=== PATIENT | female | born 1960 | race Hispanic/Latino ===

== ENCOUNTER 2019-10-18 09:31 | Outpatient (AMBR) | payer MEDICARE, MEDICAID, SELFPAY ==
--- NOTE | 2019-09-25 13:13 | PT.ODAYNRPT ---
PT Outpatient Daily Note Date of Service: 09/25/19 OP Daily Note Visit Reasons: left knee post op Outpatient Physical Therapy Treatment Date: 09/25/19 Subjective: Pt mention that her knee is doing well. Pt stop using her 4WW as much Objective: Please see flow chart for list of ther ex performed Assessment: tolerate exercises with minimal pain; able to perform all exercises without limitation. frequent rest break due to patient being exhausted Plan: Continue with PT Length of Time (minutes) of Treatment: 30 Minutes Office Procedures PT Procedures PT Date of Service: 09/25/19 Therapeutic Exercise 30 minutes: Yes
--- NOTE | 2019-09-27 11:04 | PT.ODAYNRPT ---
PT Outpatient Daily Note Date of Service: 09/27/19 OP Daily Note Visit Reasons: left knee post op Outpatient Physical Therapy Treatment Date: 09/27/19 Subjective: Pt mention that her knee is better. Pt denies of soreness Objective: Please see flow chart for list of ther ex performed Assessment: tolerate exercises with minimal pain Plan: Continue with PT Length of Time (minutes) of Treatment: 30 Minutes Office Procedures PT Procedures PT Date of Service: 09/25/19 Therapeutic Exercise 30 minutes: Yes PT Procedures PT Date of Service: 09/27/19 Therapeutic Exercise 30 minutes: Yes
--- NOTE | 2019-10-03 11:59 | PT.ODAYNRPT ---
PT Outpatient Daily Note Date of Service: 10/03/19 OP Daily Note Visit Reasons: left knee post op Outpatient Physical Therapy Treatment Date: 10/03/19 Subjective: Pt's knee sore from excessive walking from yesterday. Today she notice more swelling in the knee in the morning. Objective: Please see flow chart for list of ther ex performed Assessment: tolerate exercises; slight difficulty with sitting knee flexion stretch due to pain and rectus femoris tigthness Plan: Continue with PT Length of Time (minutes) of Treatment: 30 Minutes Office Procedures PT Procedures PT Date of Service: 10/03/19 Therapeutic Exercise 30 minutes: Yes PT Procedures PT Date of Service: 09/25/19 Therapeutic Exercise 30 minutes: Yes PT Procedures PT Date of Service: 09/27/19 Therapeutic Exercise 30 minutes: Yes
--- NOTE | 2019-10-05 09:21 | PT.ODAYNRPT ---
PT Outpatient Daily Note Date of Service: 10/05/19 OP Daily Note Visit Reasons: left knee post op Outpatient Physical Therapy Treatment Date: 10/05/19 Subjective: Pt's knee is sore from walking a lot the other day. Pt notice a little more swelling this morning. Objective: Please see flow chart for list of ther ex performed Assessment: notice more pain with all exercises; unable to perform lateral step exercise due to knee pain. Pt was pace slower with no resistance added today. Plan: Continue with PT Length of Time (minutes) of Treatment: 30 Minutes Office Procedures PT Procedures PT Date of Service: 10/03/19 Therapeutic Exercise 30 minutes: Yes PT Procedures PT Date of Service: 09/25/19 Therapeutic Exercise 30 minutes: Yes PT Procedures PT Date of Service: 09/27/19 Therapeutic Exercise 30 minutes: Yes PT Procedures PT Date of Service: 10/05/19 Therapeutic Exercise 30 minutes: Yes
--- NOTE | 2019-10-10 12:20 | PT.ODAYNRPT ---
PT Outpatient Daily Note Date of Service: 10/10/19 OP Daily Note Visit Reasons: left knee post op Outpatient Physical Therapy Treatment Date: 10/10/19 Subjective: Pt mention that her knee is better. Pt stop using her cane over the weekend and feels safe without it. Objective: Please see flow chart for list of ther ex performed Assessment: tolerate exercises with minimal pain; added mini squat with slight difficulty due to knee pain Plan: Continue with PT Length of Time (minutes) of Treatment: 30 Minutes Office Procedures PT Procedures PT Date of Service: 10/03/19 Therapeutic Exercise 30 minutes: Yes PT Procedures PT Date of Service: 09/25/19 Therapeutic Exercise 30 minutes: Yes PT Procedures PT Date of Service: 09/27/19 Therapeutic Exercise 30 minutes: Yes PT Procedures PT Date of Service: 10/05/19 Therapeutic Exercise 30 minutes: Yes PT Procedures PT Date of Service: 10/10/19 Therapeutic Exercise 30 minutes: Yes
--- NOTE | 2019-10-16 12:48 | PT.ODAYNRPT ---
PT Outpatient Daily Note Date of Service: 10/16/19 OP Daily Note Visit Reasons: left knee post op Outpatient Physical Therapy Treatment Date: 10/16/19 Subjective: Pt mention that her knee is swollen today and has been doing a lot more at home. Objective: Please see flow chart for list of ther ex performed Assessment: tolerate exercises with minimal pain; frequent rest breaks due to fatigue Plan: Continue with PT Length of Time (minutes) of Treatment: 30 Minutes Office Procedures PT Procedures PT Date of Service: 10/03/19 Therapeutic Exercise 30 minutes: Yes PT Procedures PT Date of Service: 10/16/19 Therapeutic Exercise 30 minutes: Yes PT Procedures PT Date of Service: 09/25/19 Therapeutic Exercise 30 minutes: Yes PT Procedures PT Date of Service: 09/27/19 Therapeutic Exercise 30 minutes: Yes PT Procedures PT Date of Service: 10/05/19 Therapeutic Exercise 30 minutes: Yes PT Procedures PT Date of Service: 10/10/19 Therapeutic Exercise 30 minutes: Yes
--- NOTE | 2019-10-18 10:09 | PTNOTE_ITS ---
PT Outpatient Daily Note Date of Service: 10/18/2019 OP Daily Note Visit Reasons: left knee post op Outpatient Physical Therapy Treatment Date: 10/18/19 Subjective: pt states she doing ok upon visit. pt states her R knee will need TKR as well. Objective: see flow sheet. Assessment: pt needs seated rest breaks in between ther ex due to fatigue and SOB. she needs more practice with her mini squats due too poor form. she tends to have knees over toes. after cued pt to pretend she is going to sit in chair that's what helped her correct her form. Plan: continue POC per PT. Length of Time (minutes) of Treatment: 30 Minutes LEARNING DISABLED TEACHER Service Modifier Method I: Divide the number of min of care provided by the LEARNING DISABLED TEACHER/ASSISTANT OPERATIONS MANAGER by the total min of care provided then multiply by 100. If greater than 11 percent modifier is required. Method II: Divide the total time of care provided to patient by 10 (round to the nearest whole number) and add 1 min. to set the minimum time requirement. If treatment total was 60 min., then 10% of 6 min Did LEARNING DISABLED TEACHER provide more than 10% of the care?: Yes PT CQ modifier applied: CQ Modifier applied Office Procedures PT Procedures PT Date of Service: 10/03/19 Therapeutic Exercise 30 minutes: Yes PT Procedures PT Date of Service: 10/16/19 Therapeutic Exercise 30 minutes: Yes PT Procedures PT Date of Service: 09/25/19 Therapeutic Exercise 30 minutes: Yes PT Procedures PT Date of Service: 09/27/19 Therapeutic Exercise 30 minutes: Yes PT Procedures PT Date of Service: 10/05/19 Therapeutic Exercise 30 minutes: Yes PT Procedures PT Date of Service: 10/10/19 Therapeutic Exercise 30 minutes: Yes PT Procedures PT Date of Service: 10/18/19 Therapeutic Exercise 30 minutes: Yes
== END 2019-10-23 23:59 | disposition home or self-care (01) ==
PROVIDERS: PCP Physician Assistant Medical; Referring Provider Physician Assistant Medical; Visit Provider Orthopaedic Surgery
DX: Z47.1 Aftercare following joint replacement surgery (principal); Z96.652 Presence of left artificial knee joint; M25.561 Pain in right knee; R26.2 Difficulty in walking, not elsewhere classified
CPT/HCPCS: 97110

== ENCOUNTER 2019-11-02 08:52 | Outpatient (AMBR) | payer MEDICARE, MEDICAID, SELFPAY ==
--- NOTE | 2019-10-26 15:46 | PT.ODS1RPT ---
PT OP Progress/Discharge Note Date of Service: 10/26/19 Progress Note/DC Note Progress Note/Discharge Note: Progress Note Patient Information Visit Reasons: POST OP KNEE Medical Diagnosis: Z47.1; Z96.652 Treatment Dx #1: Left Knee Mobility Deficits Treatment Dx #2: Left Knee Weakness Service Continue Service or Discharge: Continue Service Certification Date Certification Dates: 10/26/19 to 01/25/20 Status Subjective: Pt's knee is better. Pt has been able to walk with and without her cane. 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 Pt's average knee pain is 5/10 based upon the activities and how long is the activities. Pt lives alone and started to cook and clean in the past week. Objective: Left Knee AROM: -8 deg to 120 deg Left Knee MMTs Quads: 3+/5 Hs: 3+/5 Left Hip MMTs Glute Med: 3+/5 Glute Max: 3+/5 SLS: 5 sec Assessment: Pt continues to improve with ROM and strength allowing her to ambulate and perform light ADLs with less limitation. Pt still has difficulty with squat, stairs, and prolonged activities due to weakness and decrease endurance. Pt has not met set goals yet and will continue to benefit from physical therapy, thank you for your referrals. Plan: Continue with PT/POC Office Procedures PT Procedures PT Date of Service: 10/26/19 Therapeutic Exercise 30 minutes: Yes
--- NOTE | 2019-10-31 10:22 | PT.ODAYNRPT ---
PT Outpatient Daily Note Date of Service: 10/31/19 OP Daily Note Visit Reasons: POST OP KNEE Outpatient Physical Therapy Treatment Date: 10/31/19 Subjective: Pt mention that her knee is good. Pt stood and walk a lot this weekend for birthdays Objective: Please see flow chart for list of ther ex performed Assessment: tolerate exercises with minimal pain; continues to progress with strength and balance exercises Plan: Continue with PT Length of Time (minutes) of Treatment: 30 Minutes Office Procedures PT Procedures PT Date of Service: 10/26/19 Therapeutic Exercise 30 minutes: Yes PT Procedures PT Date of Service: 10/31/19 Therapeutic Exercise 30 minutes: Yes
--- NOTE | 2019-11-02 09:31 | PT.ODS1RPT ---
PT OP Progress/Discharge Note Date of Service: 11/02/19 Progress Note/DC Note Progress Note/Discharge Note: DC Note Patient Information Visit Reasons: POST OP KNEE Medical Diagnosis: Z47.1; Z96.652 Treatment Dx #1: Left Knee Mobility Deficits Treatment Dx #2: Left Knee Weakness Service Continue Service or Discharge: Discharge Discharge Date: 11/02/19 Status Subjective: Pt mention that her knee feels better. Pt's been able to walk without her cane. Pt is walking and standing longer now allowing her to start to cook and clean. Pt mention that driving is also coming along where's she's able to use both legs. At this time Pt feels comfortable being release from physical therapy with exercises to continue at home. Objective: Left Knee AROM: -7 deg to 120 deg Left Knee MMTs Quads: 4-/5 Hs: 4-/5 Left Hip MMTs Glute Med: 3+/5 GLute Max: 3+/5 SLS: 10 sec Assessment: Pt demonstrate functional knee mobility and strength allowing her to resume ADLs, ambulate, and perform chores, and cook with minimal limitation. Pt has met all set goals in therapy and will no longer benefit from physical therapy. Pt was instructed on HEP last session and educated to continue exercises to maintain overall mobility. Pt performed all exercises safely, thank you for your referrals. Plan: D/C home with HEP and follow up with [facility] Office Procedures PT Procedures PT Date of Service: 10/26/19 Therapeutic Exercise 30 minutes: Yes PT Procedures PT Date of Service: 10/31/19 Therapeutic Exercise 30 minutes: Yes PT Procedures PT Date of Service: 11/02/19 Therapeutic Exercise 30 minutes: Yes Self Care/Home Mgmt 15 minutes: Yes
== END 2019-11-22 23:59 | disposition home or self-care (01) ==
PROVIDERS: PCP Orthopaedic Surgery; Referring Provider Orthopaedic Surgery; Visit Provider Orthopaedic Surgery
DX: Z47.1 Aftercare following joint replacement surgery (principal); Z96.652 Presence of left artificial knee joint; M25.561 Pain in right knee; R26.2 Difficulty in walking, not elsewhere classified
CPT/HCPCS: 97110; 97535

== ENCOUNTER 2020-03-20 08:00 | Outpatient (AMBR) | payer MEDICARE, MEDICAID, SELFPAY ==
--- NOTE | 2020-03-06 09:21 | PT.OIERPT ---
PT OP Initial Eval Patient Information Visit Reasons: left knee pain Medical Diagnosis: M22.42 Treatment Dx #1: Left Knee Pain Treatment Dx #2: Left Knee Weakness Start of Care: 03/06/20 Date of Onset: 08/07/19 Initial Assessment Subjective Pt is a 59 y/o female s/p left knee replacement 08/07/19 which was doing great until December where she started to notice more knee pain (5/10). Pt stated that her surgeon mention her knee cap is shifted. Pt's recent xray showed satisfactory aligned knee implants. Pt has limitation with stairs, prolonged walking, squatting, kneeling, lifting, chores, cooking, getting in/out of bed, and performing recreational activities. Objective Left Knee AROM: -5 deg to 118 deg Left Knee MMTs Quads: 3+/5 Hs: 3/5 Left Hip MMTs Glute Med: 3/5 Glute Max: 3/5 SLS: 5 sec Assessment Pt demonstrate left knee pain and weakness leading to decline function. Pt will benefit from physical therapy to increase strength, stability, and work on task modification Short Term and Lunchroom Supervisor Goals 1) Increase left knee AROM to 120 knee flexion in 6 wks to be able to perform squatting activities 2) Increase left knee MMTs grossly to 4-/5 in 6 wks to be able to perform stairs and steps 3) Increase left hip hip MMTs grossly to 4-/5 in 6 wks to be able to perform ambulation more than 1 hr 4) Decrease knee pain to 2/10 in 6 wks to be able to get in/out of bed with less limitation 5) Increase SLS to 10 sec in 6 wks to be able to perform self care activities 6) Indep with HEP Treatment Plan 1) Manual Therapy 2) Therapeutic Activities 3) Therapeutic Exercises 4) Modalities (ice, heat) 5) Balance Training 6) Gait Training Frequency and Duration 2 x wk for 6 wks Certification Dates: 03/06/20 to 06/04/20 Office Procedures PT Procedures PT Date of Service: 03/06/20 OP PT Eval Mod Complex 30 minutes: Yes
--- NOTE | 2020-03-08 11:07 | PT.ODAYNRPT ---
PT Outpatient Daily Note Date of Service: 03/08/20 OP Daily Note Visit Reasons: left knee pain Outpatient Physical Therapy Treatment Date: 03/08/20 Subjective: Pt's knee is about the same Pt still has pain around the knee cap Objective: Please see flow chart for list of ther ex performed Assessment: tolerate exercises with minimal pain Plan: Continue with PT Length of Time (minutes) of Treatment: 30 Minutes Office Procedures PT Procedures PT Date of Service: 03/06/20 OP PT Eval Mod Complex 30 minutes: Yes PT Procedures PT Date of Service: 03/08/20 Therapeutic Exercise 30 minutes: Yes
--- NOTE | 2020-03-20 08:50 | PT.ODAYNRPT ---
PT Outpatient Daily Note Date of Service: 03/20/20 OP Daily Note Visit Reasons: left knee pain Outpatient Physical Therapy Treatment Date: 03/20/20 Subjective: Pt mention that her knee is a little better. Pt still has pain but it's been less intense. Pt couldn't come to therapy last week due to feeling sick. Objective: Please see flow chart for list of ther ex performed Assessment: tolerate exercises performed; slight difficulty with step up due to ant knee pain Plan: Continue with PT Length of Time (minutes) of Treatment: 30 Minutes Office Procedures PT Procedures PT Date of Service: 03/06/20 OP PT Eval Mod Complex 30 minutes: Yes PT Procedures PT Date of Service: 03/08/20 Therapeutic Exercise 30 minutes: Yes PT Procedures PT Date of Service: 03/20/20 Therapeutic Exercise 30 minutes: Yes
== END 2020-03-24 23:59 | disposition home or self-care (01) ==
PROVIDERS: PCP Physician Assistant Medical; Referring Provider Physician Assistant Medical; Visit Provider Orthopaedic Surgery
DX: M22.42 Chondromalacia patellae, left knee (principal); M25.562 Pain in left knee; R53.1 Weakness; R26.2 Difficulty in walking, not elsewhere classified
CPT/HCPCS: 97110; 97162

== ENCOUNTER 2020-04-17 10:36 | Outpatient (AMBR) | payer MEDICARE, MEDICAID, SELFPAY ==
--- NOTE | 2020-03-26 09:01 | PT.ODAYNRPT ---
PT Outpatient Daily Note Date of Service: 03/26/20 OP Daily Note Visit Reasons: LEFT KNEE PAIN Outpatient Physical Therapy Treatment Date: 03/26/20 Subjective: Pt's knee pop and twist the other day and it seems to feel better. Pt's knee is feeling better but today she is sore from excessive walking last night. Objective: Please see flow chart for list of ther ex performed Assessment: tolerate exercises with minimal pain Plan: Continue with PT Length of Time (minutes) of Treatment: 30 Minutes Office Procedures PT Procedures PT Date of Service: 03/26/20 Therapeutic Exercise 30 minutes: Yes
--- NOTE | 2020-04-02 09:17 | PT.ODAYNRPT ---
PT Outpatient Daily Note Date of Service: 04/02/20 OP Daily Note Visit Reasons: LEFT KNEE PAIN Outpatient Physical Therapy Treatment Date: 04/02/20 Subjective: Pt's knee sore from twisting it wrong the other day. Today Pt's knee feels better Objective: Please see flow chart for list of ther ex performed Assessment: tolerate exercises with minimal pain Plan: Continue with PT Length of Time (minutes) of Treatment: 30 Minutes Office Procedures PT Procedures PT Date of Service: 03/26/20 Therapeutic Exercise 30 minutes: Yes PT Procedures PT Date of Service: 04/02/20 Therapeutic Exercise 30 minutes: Yes
--- NOTE | 2020-04-17 14:16 | PTNOTE_ITS ---
PT OP Progress/Discharge Note Date of Service: 04/17/20 Progress Note/DC Note Progress Note/Discharge Note: DC Note Patient Information Visit Reasons: LEFT KNEE PAIN Medical Diagnosis: M22.42 Treatment Dx #1: Left Knee Pain Treatment Dx #2: Left Knee Weakness Service Continue Service or Discharge: Discharge Discharge Date: 04/17/20 Status Subjective: Pt mention that her knee is much better. Pt has been able to walk, stand, squat, cook, clean, and performing recreational activities with less limitation. At this time Pt feels comfortable being release from care with e xercises to continue at home. Objective: Left Knee AROM: -5 deg to 120 deg Left Knee MMTs Quads: 4-/5 Hs: 4-/5 Left Hip MMTs Glute Med: 3+/5 Glute Max: 3+/5 SLS: 10 sec Assessment: Pt demonstrate functional knee ROM and strength with less pain allowing her to resume ADLs, ambulate, and recreational activities. Pt will no longer benefit from physical therapy due to plateau towards goals. Pt was instructed on HEP last session and educated to continue exercises to maintain overall mobility. Pt performed all exercises safely, thank you for your referrals. Plan: D/C home with HEP and follow up with MD [facility] Office Procedures PT Procedures PT Date of Service: 03/26/20 Therapeutic Exercise 30 minutes: Yes PT Procedures PT Date of Service: 04/17/20 Therapeutic Exercise 30 minutes: Yes PT Procedures PT Date of Service: 04/02/20 Therapeutic Exercise 30 minutes: Yes
== END 2020-04-21 23:59 | disposition home or self-care (01) ==
PROVIDERS: PCP Physician Assistant Medical; Referring Provider Physician Assistant Medical; Visit Provider Orthopaedic Surgery
DX: Z47.1 Aftercare following joint replacement surgery (principal); Z96.652 Presence of left artificial knee joint; M25.562 Pain in left knee; R53.1 Weakness; R26.2 Difficulty in walking, not elsewhere classified
CPT/HCPCS: 97110